=== PATIENT | female | born 1970 | race Native Hawaiian/Other Pacific Islander ===

== ENCOUNTER 2016-05-21 15:32 | Outpatient (CLI) | payer BC | END 2016-05-21 19:39 | disposition home or self-care (01) | LOC: RAD 15:32 | DX: M79.671 Pain in right foot (principal) ==

== ENCOUNTER 2016-11-03 21:51 | Emergency (ER) | payer BC ==
[~2016-11-03] VITALS: Ht 162.6 cm; Wt 56.7 kg
[2016-11-03 23:42] VITALS: BP 119/77; TEMP 97.8
== END 2016-11-03 23:46 | disposition home or self-care (01) ==
LOC: ED 21:51
DX: S16.1XXA Strain of muscle, fascia and tendon at neck level, initial encounter (principal); S29.012A Strain of muscle and tendon of back wall of thorax, initial encounter; W20.8XXA Other cause of strike by thrown, projected or falling object, initial encounter; Y92.098 Other place in other non-institutional residence as the place of occurrence of the external cause
CPT/HCPCS: 99283

== ENCOUNTER 2017-03-05 17:12 | Outpatient (CLI) | payer BC | END 2017-03-05 18:04 | disposition home or self-care (01) | LOC: RAD 17:12 | DX: S59.902A Unspecified injury of left elbow, initial encounter (principal) ==

== ENCOUNTER 2017-03-28 18:21 | Outpatient (CLI) | payer BC | END 2017-03-28 22:09 | disposition home or self-care (01) | LOC: LAB 18:21 | DX: M79.605 Pain in left leg (principal) | CPT/HCPCS: 84484; 85379 ==

== ENCOUNTER 2018-01-07 09:23 | Outpatient (CLI) | payer BC | END 2018-01-07 21:21 | disposition home or self-care (01) | LOC: CT 09:23 | DX: J32.1 Chronic frontal sinusitis (principal) ==

== ENCOUNTER 2018-04-29 12:56 | Outpatient (CLI) | payer OTHER | END 2018-04-29 19:20 | disposition home or self-care (01) | LOC: LAB 12:56 | DX: R07.9 Chest pain, unspecified (principal) | CPT/HCPCS: 84484 ==

== ENCOUNTER 2018-05-31 11:53 | Outpatient (CLI) | payer OTHER | END 2018-05-31 23:42 | disposition home or self-care (01) | LOC: RAD 11:53 | DX: S63.91XA Sprain of unspecified part of right wrist and hand, initial encounter (principal); M79.671 Pain in right foot ==

== ENCOUNTER 2018-07-20 08:47 | Outpatient (CLI) | payer OTHER ==
[2018-07-20 09:40] LABS: PLATELET COUNT 358 K/uL (152-353)
[2018-07-20 10:33] LABS: POTASSIUM 3.9 mmol/L (3.6-5.2)
== END 2018-07-20 19:35 | disposition home or self-care (01) ==
LOC: LAB 08:47
PROVIDERS: Family Medicine
DX: E78.2 Mixed hyperlipidemia (principal); E55.9 Vitamin D deficiency, unspecified; R53.83 Other fatigue; M25.50 Pain in unspecified joint
CPT/HCPCS: 36415; 80053; 80061; 81000; 82306; 82607; 82670; 83001; 84402; 84403; 84436; 84443; 84481; 84550; 85027; 85651; 86038; 86140; 86376

== ENCOUNTER 2018-09-17 14:01 | Outpatient (CLI) | payer OTHER | END 2018-09-17 19:24 | disposition home or self-care (01) | LOC: MAMMO 14:01 | DX: Z12.31 Encounter for screening mammogram for malignant neoplasm of breast (principal) ==

== ENCOUNTER 2019-05-05 14:20 | Outpatient (CLI) | payer OTHER | END 2019-05-05 22:02 | disposition home or self-care (01) | LOC: LAB 14:20 | DX: R00.2 Palpitations (principal) | CPT/HCPCS: 84484 ==

== ENCOUNTER 2019-06-26 12:47 | Emergency (ER) | payer OTHER ==
[~2019-06-26] VITALS: Ht 162.6 cm; Wt 68.0 kg
[2019-06-26 14:45] VITALS: BP 118/73; TEMP 97.9
== END 2019-06-26 14:45 | disposition home or self-care (01) ==
LOC: ED 12:47
DX: S00.83XA Contusion of other part of head, initial encounter (principal); S50.02XA Contusion of left elbow, initial encounter; S50.01XA Contusion of right elbow, initial encounter; S39.012A Strain of muscle, fascia and tendon of lower back, initial encounter; S16.1XXA Strain of muscle, fascia and tendon at neck level, initial encounter; W01.198A Fall on same level from slipping, tripping and stumbling with subsequent striking against other object, initial encounter; Y92.89 Other specified places as the place of occurrence of the external cause
CPT/HCPCS: 96372; 99283; J1885

== ENCOUNTER 2019-06-29 10:34 | Outpatient (CLI) | payer OTHER | END 2019-06-29 22:57 | disposition home or self-care (01) | LOC: RAD 10:34 | DX: M79.641 Pain in right hand (principal) ==

== ENCOUNTER 2019-09-11 16:12 | Outpatient (CLI) | payer OTHER | END 2019-09-11 23:04 | disposition home or self-care (01) | LOC: RAD 16:12 | DX: R10.9 Unspecified abdominal pain (principal) ==

== ENCOUNTER 2019-09-17 08:03 | Outpatient (CLI) | payer OTHER | END 2019-09-17 19:56 | disposition home or self-care (01) | LOC: US 08:03 | DX: R10.13 Epigastric pain (principal); R06.00 Dyspnea, unspecified ==

== ENCOUNTER 2019-12-15 11:32 | Outpatient (CLI) | payer OTHER | END 2019-12-15 19:36 | disposition home or self-care (01) | LOC: MAMMO 11:32 | DX: Z12.31 Encounter for screening mammogram for malignant neoplasm of breast (principal) ==

== ENCOUNTER 2020-07-04 11:02 | Outpatient (CLI) | payer OTHER | END 2020-07-04 19:45 | disposition home or self-care (01) | LOC: RAD 11:02 | PROVIDERS: ATTEND Internal Medicine Rheumatology | DX: M89.9 Disorder of bone, unspecified (principal); M85.89 Other specified disorders of bone density and structure, multiple sites ==

== ENCOUNTER 2021-01-31 15:37 | Outpatient (CLI) | payer OTHER | END 2021-01-31 20:27 | disposition home or self-care (01) | LOC: RAD 15:37 | PROVIDERS: ATTEND Nurse Practitioner Family | DX: K59.09 Other constipation (principal) ==

== ENCOUNTER 2021-02-20 09:18 | Outpatient (CLI) | payer OTHER | END 2021-02-20 19:18 | disposition home or self-care (01) | LOC: MAMMO 09:18 | PROVIDERS: ATTEND Obstetrics & Gynecology | DX: Z12.31 Encounter for screening mammogram for malignant neoplasm of breast (principal) ==

== ENCOUNTER 2021-04-03 13:24 | Outpatient (CLI) | payer OTHER ==
[2021-04-03 14:10] LABS: POTASSIUM 4.4 mmol/L (3.6-5.2)
[2021-04-03 14:30] LABS: PLATELET COUNT 349 K/uL (152-353)
== END 2021-04-03 20:28 | disposition home or self-care (01) ==
LOC: LABW 13:24
PROVIDERS: ATTEND Nurse Practitioner Family
DX: R19.7 Diarrhea, unspecified (principal)
CPT/HCPCS: 36415; 80053; 82150; 83630; 83690; 85027; 87015; 87045; 87324; 87328; 87329; 87449; 87899

== ENCOUNTER 2021-04-05 11:05 | Outpatient (CLI) | payer OTHER | END 2021-04-05 19:03 | disposition home or self-care (01) | LOC: RAD 11:05 | PROVIDERS: ATTEND Nurse Practitioner Family | DX: M25.531 Pain in right wrist (principal); S30.0XXA Contusion of lower back and pelvis, initial encounter; Y92.9 Unspecified place or not applicable ==

== ENCOUNTER 2021-04-13 12:42 | Outpatient (CLI) | payer OTHER ==
[2021-04-13 14:12] LABS: POTASSIUM 4.6 mmol/L (3.6-5.2)
== END 2021-04-13 20:47 | disposition home or self-care (01) ==
LOC: LABW 12:42
PROVIDERS: ATTEND Nurse Practitioner Family
DX: U07.1 COVID-19 (principal)
CPT/HCPCS: 36415; 80053; 82150; 82728; 83690; 85379; 86140

== ENCOUNTER 2021-04-27 09:57 | Outpatient (CLI) | payer OTHER ==
[2021-04-27 10:23] LABS: POTASSIUM 4.4 mmol/L (3.6-5.2)
[2021-04-27 10:26] LABS: PLATELET COUNT 404 K/uL (152-353)
== END 2021-04-27 19:13 | disposition home or self-care (01) ==
LOC: LABW 09:57
PROVIDERS: ATTEND Nurse Practitioner Family
DX: E86.0 Dehydration (principal)
CPT/HCPCS: 36415; 80053; 83690; 85027

== ENCOUNTER 2021-05-18 13:32 | Outpatient (CLI) | payer OTHER | END 2021-05-18 19:22 | disposition home or self-care (01) | LOC: MRI 13:32 | PROVIDERS: ATTEND Neurological Surgery | DX: M54.16 Radiculopathy, lumbar region (principal); S39.012A Strain of muscle, fascia and tendon of lower back, initial encounter; Y92.9 Unspecified place or not applicable ==

== ENCOUNTER 2021-09-28 10:38 | Outpatient (CLI) | payer OTHER | END 2021-09-28 19:06 | disposition home or self-care (01) | LOC: RAD 10:38 | PROVIDERS: ATTEND Nurse Practitioner Family | DX: M79.674 Pain in right toe(s) (principal) ==

== ENCOUNTER 2021-10-11 14:15 | Outpatient (CLI) | payer OTHER | END 2021-10-11 19:24 | disposition home or self-care (01) | LOC: RAD 14:15 | PROVIDERS: ATTEND Nurse Practitioner Family | DX: R07.81 Pleurodynia (principal) ==

== ENCOUNTER 2021-11-02 09:21 | Outpatient (CLI) | payer OTHER | END 2021-11-02 21:20 | disposition home or self-care (01) | LOC: MAMMO 09:21 | PROVIDERS: ATTEND Obstetrics & Gynecology | DX: I88.8 Other nonspecific lymphadenitis (principal); N64.4 Mastodynia; S90.31XD Contusion of right foot, subsequent encounter; Y92.89 Other specified places as the place of occurrence of the external cause | CPT/HCPCS: G0279 ==

== ENCOUNTER 2021-11-22 08:29 | Outpatient (CLI) | payer OTHER | END 2021-11-22 19:05 | disposition home or self-care (01) | LOC: US 08:29 | PROVIDERS: ATTEND Nurse Practitioner Primary Care | DX: R10.11 Right upper quadrant pain (principal) ==

== ENCOUNTER 2021-12-08 08:21 | Outpatient (CLI) | payer OTHER | END 2021-12-08 21:27 | disposition home or self-care (01) | LOC: NM 08:21 | PROVIDERS: ATTEND Nurse Practitioner Family | DX: R10.11 Right upper quadrant pain (principal) | CPT/HCPCS: A9537 ==

== ENCOUNTER 2022-04-06 08:52 | Outpatient (CLI) | payer OTHER | END 2022-04-06 19:13 | disposition home or self-care (01) | LOC: RAD 08:52 | PROVIDERS: ATTEND Nurse Practitioner Family | DX: R07.81 Pleurodynia (principal) ==

== ENCOUNTER 2022-04-08 21:58 | Emergency (ER) | payer OTHER ==
[~2022-04-08] VITALS: Ht 165.1 cm; Wt 67.1 kg
[2022-04-08] MEDS ORDERED: TRINTELLIX5 MG PO (22:18)
[2022-04-08] MEDS ORDERED: ALBUTEROL108 MCG/AC INH (22:18)
[2022-04-08] MEDS ORDERED: XANAX XR1 MG (22:19)
[2022-04-08] MEDS ORDERED: HYDROCODONE BIT1 TA1 PO (22:20)
[2022-04-08] MEDS ORDERED: NOHIST-DM (22:21)
[2022-04-08] MEDS ORDERED: FLUDROCORT0.1 MG PO (22:22)
[2022-04-08] MEDS ORDERED: FAMOTIDINE40 MG PO (22:22)
[2022-04-08] MEDS ORDERED: PREDNISONE10 M1 (22:22)
[2022-04-08 22:46] VITALS: BP 164/84; TEMP 98
== END 2022-04-08 22:59 | disposition home or self-care (01) ==
LOC: ED 21:58
DX: R07.89 Other chest pain (principal)
CPT/HCPCS: 99283; J1885

== ENCOUNTER 2022-04-17 10:46 | Outpatient (CLI) | payer OTHER ==
[~2022-04-17 10:46] MED LIST: ALBUTEROL108 MCG/AC INH; FAMOTIDINE40 MG PO; FLUDROCORT0.1 MG PO; HYDROCODONE BIT1 TA1 PO; NOHIST-DM; PREDNISONE10 M1; TRINTELLIX5 MG PO; XANAX XR1 MG
[2022-04-17 11:11] LABS: POTASSIUM 5.1 mmol/L (3.6-5.2)
== END 2022-04-17 19:20 | disposition home or self-care (01) ==
LOC: CT 10:46
PROVIDERS: ATTEND Nurse Practitioner Family
DX: R10.11 Right upper quadrant pain (principal); R07.89 Other chest pain
CPT/HCPCS: 36415; 80053; 82150; 83690

== ENCOUNTER 2022-04-20 08:03 | Outpatient (CLI) | payer OTHER | END 2022-04-20 19:49 | disposition home or self-care (01) | LOC: US 08:03 | PROVIDERS: ATTEND Nurse Practitioner Family | DX: K85.80 Other acute pancreatitis without necrosis or infection (principal) ==

== ENCOUNTER 2022-05-16 08:16 | Outpatient (CLI) | payer OTHER | END 2022-05-16 19:11 | disposition home or self-care (01) | LOC: NM 08:16 | PROVIDERS: ATTEND Nurse Practitioner Family | DX: R10.11 Right upper quadrant pain (principal) | CPT/HCPCS: A9537 ==

== ENCOUNTER 2022-06-11 08:40 | Outpatient (CLI) | payer OTHER ==
[2022-06-11 09:18] LABS: PLATELET COUNT 328 K/uL (152-353)
[2022-06-11 09:30] LABS: POTASSIUM 4.6 mmol/L (3.6-5.2)
== END 2022-06-11 18:55 | disposition home or self-care (01) ==
LOC: RESP 08:40
PROVIDERS: ATTEND Nurse Practitioner Family
DX: I10 Essential (primary) hypertension (principal); E86.0 Dehydration; E87.6 Hypokalemia; R60.0 Localized edema
CPT/HCPCS: 36415; 80053; 81002; 82550; 83880; 84484; 85027; 93005

== ENCOUNTER 2022-07-06 07:59 | Outpatient (CLI) | payer OTHER | END 2022-07-06 19:13 | disposition home or self-care (01) | LOC: RAD 07:59 → MAMMO 08:30 → RAD 19:13 | PROVIDERS: ATTEND Obstetrics & Gynecology | DX: Z12.31 Encounter for screening mammogram for malignant neoplasm of breast (principal); E55.9 Vitamin D deficiency, unspecified; E56.8 Deficiency of other vitamins; M06.4 Inflammatory polyarthropathy; M85.89 Other specified disorders of bone density and structure, multiple sites; Z79.899 Other long term (current) drug therapy ==

== ENCOUNTER 2022-09-19 09:56 | Outpatient (CLI) | payer OTHER | END 2022-09-19 19:00 | disposition home or self-care (01) | LOC: US 09:56 | PROVIDERS: ATTEND Nurse Practitioner Family | DX: R60.0 Localized edema (principal) ==

== ENCOUNTER 2022-09-27 16:04 | Emergency (ER) | payer OTHER ==
[~2022-09-27] VITALS: Ht 165.1 cm; Wt 68.0 kg
[2022-09-27 16:10] VITALS: BP 125/61; TEMP 98.4
== END 2022-09-27 16:41 | disposition left against medical advice (07) ==
LOC: ED 16:04
DX: M79.662 Pain in left lower leg (principal); S86.912A Strain of unspecified muscle(s) and tendon(s) at lower leg level, left leg, initial encounter; Z53.29 Procedure and treatment not carried out because of patient's decision for other reasons
CPT/HCPCS: 99281

== ENCOUNTER 2022-09-28 10:28 | Emergency (ER) | payer OTHER ==
[~2022-09-28] VITALS: Ht 165.1 cm; Wt 76.2 kg
[2022-09-28 10:31] VITALS: BP 125/75; TEMP 98.2
== END 2022-09-28 11:35 | disposition home or self-care (01) ==
LOC: ED 10:28
DX: S86.919A Strain of unspecified muscle(s) and tendon(s) at lower leg level, unspecified leg, initial encounter (principal); M79.89 Other specified soft tissue disorders
CPT/HCPCS: 99282